=== PATIENT | male | born 1960 ===

== ENCOUNTER 2017-09-25 08:37 | Emergency (ER) | payer OTHER ==
[2017-09-25 08:48] VITALS: BP 135/78; PULSE 74; RESP 18; TEMP 99.3; O2SAT 97
[2017-09-25] MEDS ORDERED: Naproxen 550 mg Tab PO STA (09:16)
[2017-09-25] MEDS ORDERED: Naproxen 550 mg Tab PO ONE (09:27)
--- NOTE | 2017-09-25 09:56 | C.PDOC ---
History Of Present Illness 57 y/o male presents to the ER complaining of right-sided low back pain radiating down the right leg for 1 week. Pain is described as sharp and tingling. He reports taking 200 mg Advil without relief. Patient denies falls/ injuries, urinary retention, bowel/bladder incontinence, dysuria, abdominal or flank pain. Time Seen by Provider: 09/25/17 09:01 Chief Complaint (Nursing): Back Pain History Per: Patient History/Exam Limitations: no limitations Onset/Duration Of Symptoms: Days Current Symptoms Are (Timing): Still Present Quality Of Discomfort: "Pain" Severity: Moderate Past Medical History Reviewed: Historical Data, Nursing Documentation, Vital Signs Vital Signs: Last Vital Signs Temp 99.3 F 09/25/17 08:46 Pulse 74 09/25/17 08:46 Resp 18 09/25/17 08:46 BP 135/78 09/25/17 08:46 Pulse Ox 97 09/25/17 10:47 - Medical History PMH: No Chronic Diseases Surgical History: No Surg Hx Family History: States: No Known Family Hx - Social History Hx Tobacco Use: No Hx Alcohol Use: No Hx Substance Use: No Review Of Systems Constitutional: Negative for: Fever, Chills Gastrointestinal: Negative for: Nausea, Vomiting, Abdominal Pain, Diarrhea Genitourinary: Negative for: Dysuria, Frequency, Incontinence Musculoskeletal: Positive for: Back Pain Skin: Negative for: Rash Neurological: Negative for: Weakness, Numbness, Incoordination Physical Exam - Physical Exam Appears: Well, Non-toxic, In Acute Distress (in mild pain ) Skin: Normal Color, Warm, Dry, No Rash Head: Normacephalic Eye(s): bilateral: Normal Inspection Oral Mucosa: Moist Neck: Supple Cardiovascular: Rhythm Regular Respiratory: Normal Breath Sounds, No Rales, No Rhonchi, No Wheezing Gastrointestinal/Abdominal: Normal Exam, Bowel Sounds, Soft, No Tenderness Back: No CVA Tenderness, No Vertebral Tenderness, No Decreased ROM, Paraspinal Tenderness (Right paralumbar tenderness) Extremity: Bilateral: Atraumatic, Normal Color And Temperature, Normal ROM Pulses: Left Dorsalis Pedis: Normal, Right Dorsalis Pedis: Normal Neurological/Psych: Oriented x3, Normal Motor, Normal Sensation Gait: Steady ED Course And Treatment O2 Sat by Pulse Oximetry: 97 (RA) Pulse Ox Interpretation: Normal Progress Note: Patient given PO Naprosyn, Flexeril and Prednisone in ED. Reevaluation Time: 09:55 Reassessment Condition: Improved (On reassessment, patient's pain has improved and he is ambulating normally in ED. Rxs for Naprosyn, Flexeril and Prednisone given. Patient instructed to follow up with PMD/clinic in 1-2 days, and understands he should return to ED if symptoms worsen.) Disposition Counseled Patient/Family Regarding: Diagnosis, Need For Followup, Rx Given - Disposition Referrals: [facility] [Outside] Disposition: HOME/ ROUTINE Disposition Time: 10:00 Condition: STABLE Additional Instructions: FOLLOW UP WITH YOUR DOCTOR/CLINIC IN 1-2 DAYS USE MEDICATIONS DIRECTED RETURN TO ER IF SYMPTOMS WORSEN Prescriptions: Cyclobenzaprine [Flexeril] 10 mg PO BID PRN #15 tab PRN Reason: Muscle Spasm Naproxen 375 mg PO BID PRN #20 tablet PRN Reason: pain predniSONE [predniSONE Tab] 40 mg PO DAILY #8 tab Instructions: Sciatica (DC), Radiculopathy (DC) Forms: [employer] (Greenlandic) Print Language: KINYARWANDA - POA Present On Arrival: None - Clinical Impression Clinical Impression: Low back pain, Sciatica - Scribe Statement The provider has reviewed the documentation as recorded by the Marin Gonzales Provider Attestation: All medical record entries made by the Marin were at my direction and personally dictated by me. I have reviewed the chart and agree that the record accurately reflects my personal performance of the history, physical exam, medical decision making, and the department course for this patient. I have also personally directed, reviewed, and agree with the discharge instructions and disposition.
== END 2017-09-25 10:11 | disposition home or self-care (01) ==
LOC: C.ER 08:37
DX: M54.41 Lumbago with sciatica, right side (principal)